=== PATIENT | male | born 1980 | race Caucasian/White ===

== ENCOUNTER 2022-06-25 09:16 | Outpatient (CLI) | payer OTHER, SELFPAY ==
--- NOTE | 2022-06-25 08:28 | DI.RAD_ITS ---
Exam(s) XR KNEES MERCHANT ONLY XR KNEE LT 3V AP,LAT,JETHRO EXAM: XR KNEE LT 3V AP,LAT,JETHRO and XR knees Merchant only CLINICAL HISTORY: left knee pain. TECHNIQUE: 2D digital imaging was performed of the left knee. Four images were obtained. Merchant, AP, lateral and PA tunnel views were obtained. COMPARISON: There are no priors for comparison. FINDINGS: BONES: No acute fracture is present. No bony destructive lesion is seen. JOINTS: The knee is normally aligned. No joint effusion is seen. SOFT TISSUE: Normal. IMPRESSION: Normal radiographs of the left knee. DATA REPOSITORY: RADIATION DOSE DELIVERED:
== END 2022-06-25 09:17 | disposition home or self-care (01) ==
LOC: DIORS 09:17
PROVIDERS: PCP Nurse Practitioner Primary Care; Referring Provider Nurse Practitioner Primary Care; Visit Provider Physician Assistant
DX: M25.562 Pain in left knee; M25.561 Pain in right knee
CPT/HCPCS: 73562; 73565

== ENCOUNTER 2024-03-17 09:30 | Outpatient (REF) | payer OTHER, SELFPAY ==
[2024-03-17 15:27] LABS: Calculated LDL 105 mg/dL (<100); Cholesterol 181 mg/dL (<200); Glucose 93 mg/dL (74-106); HDL Cholesterol 51 mg/dL (40-60); Triglyceride 127 mg/dL (<150)
== END 2024-03-17 09:31 | disposition home or self-care (01) ==
LOC: NCHCN 09:30
PROVIDERS: PCP Nurse Practitioner Primary Care; Visit Provider Family Medicine
DX: Z00.00 Encounter for general adult medical examination without abnormal findings (principal)
CPT/HCPCS: 80061; 82947

== ENCOUNTER 2025-02-24 14:55 | Emergency (ER) | payer OTHER, SELFPAY ==
[2025-02-24 14:58] VITALS: BP 136/84; PULSE 88; RESP 20; TEMP 36.8; O2SAT 96
--- NOTE | 2025-02-24 15:15 | DI.CT_ITS ---
Exam(s) CT BRAIN NECK CTA EXAM: CT BRAIN NECK CTA CLINICAL HISTORY: Dizziness, headache. TECHNIQUE: Imaging Protocol: Axial CT angiography was performed with multi- slice acquisition and multi-planar and MIP reconstructions. CONTRAST MATERIAL: Intravenous: Omnipaque 350 Contrast volume: 70 ml COMPARISON: No exams were available for comparison FINDINGS: CT Head W/O and W contrast: Ventricles and Extra axial spaces: Normal in size and morphology for the patient's age. Hemorrhage: None. Cerebral parenchyma: No evidence of acute infarct or mass. Midline shift: None. Brainstem/Cerebellum: No acute findings.. Calvarium: Normal. Visualized Paranasal sinuses/Mastoids: Clear. Soft Tissues: Unremarkable. Enhancement: Normal. Venous sinuses are patent. CTA Brain W: Internal Carotid Arteries: Right: No aneurysm, occlusion or significant stenosis. Left: No aneurysm, occlusion or significant stenosis. Middle Cerebral Arteries: Right: No aneurysm, occlusion or significant stenosis. Left: No aneurysm, occlusion or significant stenosis. Anterior Cerebral Arteries: Right: No aneurysm, occlusion or significant stenosis. Left: No aneurysm, occlusion or significant stenosis. Posterior cerebral Arteries: Right: No aneurysm, occlusion or significant stenosis. Left: No aneurysm, occlusion or significant stenosis. Vertebral Arteries: Right: No aneurysm, occlusion or significant stenosis. Left: No aneurysm, occlusion or significant stenosis. Basilar Artery: No aneurysm, occlusion or significant stenosis. CTA Neck W: Visualized aorta: Unremarkable. Visualized pulmonary arteries: Unremarkable. Subclavian arteries: Unremarkable. Common Carotid: Right: No dissection, occlusion or significant stenosis. Left: No dissection, occlusion or significant stenosis. External Carotid: Right: No dissection, occlusion or significant stenosis. Left: No dissection, occlusion or significant stenosis. Internal Carotid: Right: No dissection, occlusion or significant stenosis. Left: No dissection, occlusion or significant stenosis. Vertebral Artery: Right: No dissection, occlusion or significant stenosis. Left: No dissection, occlusion or significant stenosis. Lung Apices: No acute findings. Bones: No acute abnormality. No significant degenerative changes. Soft Tissues: Normal. IMPRESSION: 1. CTA brain: Normal CTA examination of the [place]. 2. Head CT: No acute abnormality. 3. CTA neck: No evidence of occlusion, significant stenosis or dissection. No visible atherosclerotic changes. RADIATION DOSE DELIVERED: Total DLP DATA REPOSITORY: All CT scans at this facility are submitted to the National Radiology Data Registry (NRDR) Dose Index Registry (DIR) with the [employer] (A[employer]). RADIATION OPTIMIZATION: All CT scans at this facility use at least one of these dose optimization techniques: automated exposure control; mA and/or kV adjustment per patient size (includes targeted exams where dose is matched to clinical indication); or iterative reconstruction.
--- NOTE | 2025-02-24 15:18 | W.ED.GENAD ---
Discharge Plan Disposition Patient Disposition: Home Condition: Stable Discharge Details Clinical Impression: Dizziness, Headache Primary Care Provider: BERTA GRIFFITH ED Provider: Christine Miller Home Meds and New Rx's Prescriptions: No Action diazepam [Valium] 10 mg tablet 10 mg PO ONCE PRN (Reason: premedication) Qty: 1 0RF Rx Instructions: Take 1 hour prior to procedure. 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 I did add on a hemoglobin A1c to rule out diabetes. Please discuss these results with your primary care provider. Follow up with primary care provider in 3-5 days. Return to ED sooner if any worsening or concerns. Increase oral fluids. Please take Tylenol or Ibuprofen with food every 4-6 hours as needed for pain and swelling. Stand Alone Forms: Portal Information Referrals: Fabien Weathers MD [ NON-[facility] STAFF PHYSICIAN, Medicine] - 1 week Referral Note: ER follow up call for an appointment Discharge Data Discharge Date/Time-TO BE ENTERED AT DEPARTURE: 02/24/25 17:11 HPI General Mode of arrival: ambulatory. Date/Time Provider Initiated Documentation: 02/24/25 14:56. Limitations to Documentation: no limitations. Information obtained by: patient, RN notes reviewed and old records reviewed. HPI Narrative: 44 year old male presents to the ER wit a cc of dizziness and headache intermittently x 3 months. Has been seen at urgent care and ENT. Associated with nasal drip, left ear pain. Denies recent known head injury, no nausea, vomiting, dirrea, no weakness or numbness, denies blurry vision or diplopia. Reports pain worse emma looking up and diziness gets worse when looking up. 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 Related Data Home Medications ?Medication ?Instructions ?Recorded ?Confirmed diazepam 10 mg tablet (Valium) 10 mg PO ONCE PRN premedication #1 05/01/23 02/24/25 tab fluticasone propionate 50 1 spray intranasal BID 01/25/25 02/24/25 mcg/actuation nasal spray,suspension meclizine 25 mg tablet 25 mg PO Q6H PRN 01/25/25 02/24/25 trazodone 50 mg tablet 50 mg PO QHS 01/25/25 02/24/25 Previous Rx's ?Medication ?Instructions ?Recorded diazepam 10 mg tablet (Valium) 10 mg PO ONCE PRN premedication #1 05/01/23 tab Allergies Allergy/AdvReac Type Severity Reaction Status Date / Time No Known Allergies Allergy Verified 02/24/25 15:02 General Stated Complaint: Dizzy/Sync ASHLEY: 3 Review of Systems All systems reviewed & are unremarkable except as noted in HPI and below Constitutional Constitutional: Reports as per HPI, Denies frequent falls, Reports headache(s) and Denies weakness ENT Ears, Nose, Mouth, and Throat: Reports dizziness and Reports headache(s) Musculoskeletal Musculoskeletal: Denies numbness Neurologic Neurologic: Reports as per HPI, Denies abnormal speech, Reports dizziness, Denies frequent falls, Reports headache(s), Denies lack of coordination, Denies numbness, Denies other visual disturbances and Denies weakness Exam Narrative Exam Narrative: Constitutional: Alert and oriented x3. Appears stated age. Normal body habitus. Head: Normocephalic, no trauma. Eyes: Pupils PERRL, Red reflex noted, EOM's intact. Eyelids symmetrical without lesions, discharge, or swelling. ENT: Bilateral TM's WNL, External ear normal to inspection, no mastoid TTP, swelling, or erythema, Nasal turbinates WNL, no nasal discharge. Normal dentition, Posterior pharynx WNL, no exudate. Chest: RRR, Normal S1, S2, distal pulses intact. Resp: Lungs clear to auscultation bilaterally, no wheezes, rales, or rhonchi. Abdomen: Soft, non-distended, Normoactive bowel sounds all 4 quads. Musculoskeletal: Normal gait, Moves all 4 extremities without difficulty. Skin: No suspicious rashes or lesions. Capillary refill less than 2 sec. Neurologic: Cranial nerves II-XII intact. Alert and oriented x 3. Motor: No deficits noted. Sensory: Intact bilaterally all 4 extremities. Hematologic/Lymphatic: No ecchymosis, no lymphadenopathy. Course Vital Signs Vital signs: Vital Signs Temperature 36.8 C 02/24/25 14:58 Pulse 88 02/24/25 14:58 Respiratory Rate 20 02/24/25 14:58 Blood Pressure 136/84 02/24/25 14:58 Pulse Oximetry 96 02/24/25 14:58 Temperature 36.8 C 02/24/25 14:58 Pulse 88 02/24/25 14:58 Respiratory Rate 20 02/24/25 14:58 Blood Pressure 136/84 02/24/25 14:58 Blood Pressure Position Sitting 02/24/25 14:58 Pulse Oximetry 96 02/24/25 14:58 Oxygen Delivery Method Room Air 02/24/25 14:58 Oxygen Flow Rate 0 02/24/25 14:58 Medical Decision Making 44 year old male presents to the ER wit a cc of dizziness and headache intermittently x 3 months. Has been seen at urgent care and ENT. Associated with nasal drip, left ear pain. Denies recent known head injury, no nausea, vomiting, dirrea, no weakness or numbness, denies blurry vision or diplopia. Reports pain worse emma looking up and diziness gets worse when looking up. 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 Diff dx includes, Sinusitis, BPV, Electrolyte abnormality, Cluster headaches, CVA, Veterbral dissection. Workup ordered including CBC, CMP, UA, Mag, CTA brain and neck. Discussed CT results and lab results with patient who verbalized understanding. I did instruct him to follow-up with his PCP or to return to the ER for any worsening. I did discuss his blood sugar was slightly elevated in the add-on with a hemoglobin A1c. Patient discharged in hemodynamically stable condition. This text was generated using [employer] system, please disregard any oddities of phrase or misspellings. Medical Records Medical records reviewed: Yes I reviewed the patient's medical records. Lab Data Lab results reviewed: Yes I reviewed the patient's lab results. Labs: Laboratory Tests Range/Units 02/24/25 15:35 WBC (4.4-10.8) 10^3/uL 5.36 RBC (4.36-5.78) 10^6/uL 5.06 Hgb (13.5-17.5) g/dL 14.2 Hct (40.0-50.0) % 40.2 MCV (80-95) fL 79 L MCH (27.0-33.0) pg 28.1 MCHC (32.0-36.0) % 35.3 RDW (11.8-14.1) % 12.1 Plt Count (130-400) 10^3/uL 286 MPV (8.0-11.0) fL 9.0 Immature Gran % % 0.4 Neutrophils % % 60.0 Lymphocytes % % 27.8 Monocytes % % 7.6 Eosinophils % % 3.5 Basophils % % 0.7 Nucleated RBC % (0.0-0.3) % 0.0 Absolute Neutrophils (1.2-6.7) 10^3/uL 3.21 Absolute Lymphocytes (1.2-3.4) 10^3/uL 1.49 Absolute Monocytes (0.1-0.8) 10^3/uL 0.41 Absolute Eosinophils (0.0-0.7) 10^3/uL 0.19 Absolute Basophils (0.0-0.2) 10^3/uL 0.04 Sodium (136-145) mmol/L 141 Potassium (3.5-5.1) mmol/L 3.8 Chloride (98-107) mmol/L 108 H Carbon Dioxide (20.0-31.0) mmol/L 25.6 Anion Gap (3-11) mmol/L 7.4 BUN (9-23) mg/dL 16 Creatinine (0.73-1.18) mg/dL 0.90 Est GFR (CKD-EPI 2020) (mL/min/1.73m2) 91.10 Glucose (74-106) mg/dL 145 H Hemoglobin A1c (<5.7) % 5.0 Calcium (8.3-10.6) mg/dL 9.3 Magnesium (1.6-2.6) mg/dL 2.0 Total Bilirubin (0.2-1.2) mg/dL 0.4 AST (<34) U/L 20 ALT (10-49) U/L 26 Alkaline Phosphatase (46-116) U/L 96 Total Protein (5.7-8.2) g/dL 7.0 Albumin (3.2-5.0) g/dL 4.6 Urine Color (Yellow) Yellow Urine Clarity (Clear) Clear Urine pH (5-8) 5.5 Ur Specific [place] (1.005-1.025) 1.025 Urine Protein (Neg-Trace) mg/dL Negative Urine Ketones (Negative) mg/dL Negative Urine Blood (Negative) Negative Urine Nitrite (Negative) Negative Urine Bilirubin (Negative) Negative Urine Urobilinogen (Up to 0.2) mg/dL 0.2 Ur Leukocyte Esterase (Negative) Negative Urine Glucose (Negative) mg/dL Negative Add-On Test Request DONE PFSH All Active Problems (Updated 02/24/25 @ 16:54 by Christine Miller NP) Headache (Acute) Dizziness (Acute) Brain fog (Acute) Postnasal drip (Acute) Recurrent sinusitis (Acute) Internal derangement of left knee (Acute) Medical History Benign paroxysmal positional vertigo Low back pain Overweight Vertigo Viral labyrinthitis Hypertrophy of tonsils Insomnia Anxiety Surgical History History of surgery thumb fx pin L wrist ulnar nerve release Family History Mother BCC (basal cell carcinoma of skin) Hypertension Maternal Grandfather Diabetes Stroke Social History Smoking risk assessment performed?: No
[2025-02-24 15:44] VITALS: RESP 16
[2025-02-24 15:45] LABS: Abs Immature Grans 0.02 10^3/uL (0.0-0.06); HCT 40.2 % (40.0-50.0); HGB 14.2 g/dL (13.5-17.5); Immature Grans % 0.4 %; MCH 28.1 pg (27.0-33.0); MCHC 35.3 % (32.0-36.0); MCV 79 fL (80-95); MPV 9.0 fL (8.0-11.0); Platelet Count 286 10^3/uL (130-400); RBC 5.06 10^6/uL (4.36-5.78); RDW 12.1 % (11.8-14.1); RDW-SD 34.9 fL; WBC 5.36 10^3/uL (4.4-10.8)
[2025-02-24 15:49] LABS: Glucose Negative (Negative)
[2025-02-24 16:00] LABS: Magnesium 2.0 mg/dL (1.6-2.6)
[2025-02-24 16:02] LABS: ALT 26 U/L (10-49); AST 20 U/L (<34); Albumin 4.6 g/dL (3.2-5.0); Alkaline Phosphatase 96 U/L (46-116); Anion Gap 7.4 mmol/L (3-11); BUN 16 mg/dL (9-23); Bilirubin, Total 0.4 mg/dL (0.2-1.2); CO2 25.6 mmol/L (20.0-31.0); Calcium 9.3 mg/dL (8.3-10.6); Chloride 108 mmol/L (98-107); Glucose 145 mg/dL (74-106); Potassium 3.8 mmol/L (3.5-5.1); Sodium 141 mmol/L (136-145); Total Protein 7.0 g/dL (5.7-8.2)
[2025-02-24] MEDS: Normal Saline Flush 10 ML SYR IVP (16:25)
[2025-02-24] MEDS: Omnipaque 350 MG/ML 100 ML BTL IJ (16:26)
[2025-02-24] MEDS: Normal Saline - Diluent 50 ML VIAL IJ (16:26)
[2025-02-24 17:10] VITALS: BP 125/82; PULSE 68; RESP 17; O2SAT 95
[2025-02-24 18:10] LABS: Lab Add On Test DONE
[2025-02-24 18:36] LABS: Hemoglobin A1C 5.0 % (<5.7)
== END 2025-02-24 17:11 | disposition home or self-care (01) ==
PROVIDERS: Emergency Provider Registered Nurse Emergency; PCP Nurse Practitioner Primary Care
DX: R42 Dizziness and giddiness (principal); R51.9 Headache, unspecified
CPT/HCPCS: 36415; 70496; 70498; 80053; 99285; 81003; 83036; 83735; 85025; 99283; J3490